=== PATIENT | male | born 1990 | race Caucasian/White ===

== ENCOUNTER 2020-08-10 08:00 | Outpatient (REF) | payer OTHER, SELFPAY ==
[2020-08-10 09:30] LABS: Cholesterol 152 mg/dL; Glucose Fasting 95 mg/dL (60-99); HDL Cholesterol 34 mg/dL; LDL Cholesterol Calculated 102 mg/dl; Triglycerides 84 mg/dL
[2020-08-10 10:03] LABS: Estimated Average Glucose 103 mg/dL; Hemoglobin A1c % 5.2 %
== END 2020-08-10 08:01 | disposition home or self-care (01) ==
LOC: HO.LAB 08:00
PROVIDERS: PCP Family Medicine; Visit Provider Family Medicine
DX: E66.9 Obesity, unspecified (principal); Z82.49 Family history of ischemic heart disease and other diseases of the circulatory system
CPT/HCPCS: 36415; 80061; 82947; 83036

== ENCOUNTER 2020-09-18 08:34 | Emergency (ER) | payer OTHER, SELFPAY ==
--- NOTE | ~2020-09-18 | XR_ITS ---
EXAMINATION: XR chest 1V CLINICAL INFORMATION: Reason for Exam cough, fever COMPARISON: None TECHNIQUE: XR chest 1V Tubes and lines: None Lungs and Ree: Newly developed left parahilar interstitial opacification and interstitial infiltrates. Pleura: Normal. Costophrenic angles are sharp. No pneumothorax. Heart and mediastinum: The mediastinum is within normal limits.. Bones: Skeletal structures included are normal for patient's age. XR/XR chest 1V IMPRESSION: Newly developed left parahilar interstitial infiltrates presumably pneumonia. Clinical correlation and follow-up recommended to ensure complete clearance..
[2020-09-18 08:57] VITALS: BP 146/85; PULSE 90; RESP 18; TEMP 37.6; O2SAT 97; BMI 39.3
--- NOTE | 2020-09-18 09:12 | ED_ITS ---
HPI - General Adult General Chief complaint: General Medical Stated complaint: BACK PAIN Time Seen by Provider: 09/18/20 09:01 Source: patient Mode of arrival: ambulatory Limitations: no limitations History of Present Illness HPI narrative: 29 yo male with past medical history of low back pain, asthma, depression here with complaints of subjective fevers, chills, cough, low back pain, nausea, vomiting, diarrhea, abdominal cramping x 3 days. Works at [employer]. No chest pain, shortness of breath, upper back pain, lower leg swelling or edema. Related Data Previous Rx's Medication Instructions Recorded azithromycin See Rx Instructions .ROUTE 09/18/20 .COMPLEX #6 tab ibuprofen 800 mg PO Q8H #30 tab 09/18/20 Allergies Allergy/AdvReac Type Severity Reaction Status Date / Time No Known Allergies Allergy Unverified 03/03/20 16:13 [No Known Allergies*] Review of Systems Review of Systems: Yes all other systems are reviewed and are negative Constitutional: Constitutional: Reports no additional constitutional complaints, Denies body ache(s), Reports chills, Reports fever(s) (subjective ), Denies headache(s) and Denies weakness Eyes: Eyes: Reports no additional eye complaints and Denies change in vision ENT: Reports system reviewed and no additional complaints, except as documented, Denies dizziness, Denies headache(s), Denies nasal congestion, Denies nasal discharge and Denies neck pain Cardiovascular: Cardiovascular: Reports no additional cardiovascular complaints, Denies chest pain, Denies leg edema and Denies dyspnea Respiratory: Respiratory: Reports no additional respiratory complaints, Reports cough and Denies dyspnea Gastrointestinal: Gastrointestinal: Reports no additional gastrointestinal complaints, Reports abdominal pain, Reports diarrhea, Reports nausea and Reports vomiting Genitourinary: Genitourinary: Denies urinary incontinence Musculoskeletal: Musculoskeletal: Reports no additional musculoskeletal complaints, Denies back pain, Denies arthralgias, Denies joint swelling, Denies neck pain, Denies numbness and Denies tingling Integumentary/Breasts: Skin/Breast: Reports system reviewed and no additional complaints, except as docu and Denies rash Neurologic: Reports system reviewed and no additional complaints, except as documented, Denies Abnormal speech present, Denies dizziness, Denies headache(s), Denies numbness, Denies tingling and Denies weakness PMFSH Past Medical History Attestation statement: The following information was validated with the patient. Source: old records reviewed and nursing notes reviewed Medical History Asthma Depression Social History Social History Advance Directives: Yes Advance Directives Information Provided: No Advance Directives on File: No Physical Exam Vital Signs: Vital Signs: Last Vital Signs Temp 99.6 F 09/18/20 08:57 Pulse 90 09/18/20 08:57 Resp 18 09/18/20 08:57 BP 146/85 H 09/18/20 08:57 Pulse Ox 97 09/18/20 08:57 Body Mass Index 39.3 Const: General: cooperative, healthy appearing, comfortable and no acute distress Orientation/consciousness: patient oriented x3 Limitations: no limitations HENMT: Head: Yes normal to inspection Ears: hearing grossly normal bilaterally General nose exam: Normal external nose present Face and sinus: Yes normal facial exam Mouth: Normal oral and palatal mucosa present Throat: Yes posterior oropharynx normal Eyes: General: appearance normal, both eyes and all related structures Pupils: Equal, round and reactive pupils present Neck: Neck: Yes normal visual inspection Chest: Chest palpation & inspection: normal inspection of the chest Resp: Effort & Inspection: normal respiratory effort Auscultation: clear to auscultation bilaterally Cardio: Rate: regular rate Rhythm: regular rhythm Peripheral pulses: Peripheral pulses 2+ throughout GI: Inspection: Yes normal to inspection Palpation (GI): Soft to palpation and nontender Auscultation: normal bowel sounds Back/Spine/Pelvis: Other: lower lumbar soft tissue tenderness. No step offs or deformities Thoracic/Lumbar Spine: thoracic and lumbar spine normal to inspection Skin: General skin exam: no rashes or lesions noted Neuro: General: patient oriented x3, no focal motor deficits and normal sensation to monofilament Cranial nerves: Yes Equal, round and reactive pupils present Cognition (Neuro): normal cognition Speech: No Abnormal speech present Gait exam (Neuro): Normal gait present Motor exam (neuro): 5/5 motor strength present throughout Extrem: General: Yes normal to inspection Course Course Course Narrative: 29 yo male here with flu like symptoms x 3 days. Will check COVID screen, CXR. 1015-COVID positive. X-ray consistent with a left lower lobe pneumonia. Patient is well-appearing, no tachycardia, hypoxia, tachypnea. No systemic signs or symptoms concerning for systemic infection. Patient ambulated around the room with oxygen saturation greater than 95% and no shortness of breath. Will discharge home. We discussed quarantine at home. We discussed monitoring symptoms closely and returning to the emergency department for worsening shortness of breath, chest pain, fever which is not respond to Motrin or Tylenol. Comfortable with discharge home. Medical Decision Making Lab Data Labs: Lab Results 09/18/20 Range/Units 09:46 COVID-19 (ERICKA) Positive A (Negative) COVID-19 Clin Com See Note Imaging Data Chest x-ray: Attestation: I personally reviewed and interpreted this imaging study as follows: Radiologist's impression: IMPRESSION: Newly developed left parahilar interstitial infiltrates presumably pneumonia. Clinical correlation and follow-up recommended to ensure complete clearance.. Discharge Plan Discharge Clinical Impression: COVID-19, Pneumonia Patient Disposition: Home, Self-Care Instructions: Bacterial Pneumonia (ED), COVID-19 (Coronavirus Disease 2019) (ED) Additional Instructions: Increase fluids, rest Take Motrin or Tylenol if able as needed for pain or fever Per the CDC your must quarentine for 10 days and her symptoms must be resolved for 24 hours before leaving her quarantine Your x-ray shows a pneumonia. We are treating with antibiotics for this. Consider buying a pulse oximeter which had come by on [employer] and monitor your oxygen levels at home. Return to the emergency department for oxygen level is less than 90%. Also return for increasing shortness of breath, chest pain, fever which is not respond to Motrin Tylenol home. Prescriptions: New azithromycin 250 mg tablet See Rx Instructions .ROUTE .COMPLEX Qty: 6 RF: 0 ibuprofen 800 mg tablet 800 mg PO Q8H Qty: 30 RF: 0 Referrals: Gerald Garcia MD [Primary Care Provider] - 2 days Stand Alone Forms: Work/School Release Interventions: ED Discharge Assessment Last Done: 09/18/20 10:22 Discharge Date/Time: 09/18/20 10:22
[2020-09-18 10:00] LABS: IDNOW Serial# 9DD0AD1C
[2020-09-18 10:01] LABS: COVID-19 Test Positive (Negative)
--- NOTE | 2020-09-18 10:16 | PC.NURSE ---
walking pulse oximetry, patient walked 100 feet, o2 saturation went to 95% on room air.
== END 2020-09-18 10:22 | disposition home or self-care (01) ==
PROVIDERS: Nurse Practitioner Family; Emergency Provider Emergency Medicine; PCP Family Medicine
DX: U07.1 COVID-19 (principal); J12.82 Pneumonia due to coronavirus disease 2019; M54.5 Low back pain; Z79.899 Other long term (current) drug therapy
CPT/HCPCS: 36415; 71045; 87635; 99283

== ENCOUNTER 2020-09-23 03:50 | Inpatient (IN) | payer OTHER, SELFPAY ==
[2020-09-23] VITALS (9 sets, daily range): BP systolic 112–129; BP diastolic 59–85; PULSE 76–97; RESP 18–23; TEMP 36.2–38.2; O2SAT 88–96; BMI 39.3
--- NOTE | ~2020-09-23 | XR_ITS ---
EXAMINATION: XR CHEST CLINICAL INFORMATION: Shortness of breath COMPARISON: 09/18/2020 TECHNIQUE: Frontal view of the chest was obtained. FINDINGS: Multifocal bilateral patchy airspace opacities have progressed in the interim. No large pleural effusion. No pneumothorax. Normal heart size. XR/XR chest 1V IMPRESSION: Worsening multifocal bilateral airspace opacities.
[2020-09-23] MEDS: Acetaminophen 325 MG TABLET 975 MG PO (04:51)
--- NOTE | 2020-09-23 04:52 | ED_ITS ---
HPI - URI/Sore Throat General Chief Complaint: Upper Respiratory Symptoms Stated Complaint: COVID + SOB Time Seen by Provider: 09/23/20 04:38 Source: patient Mode of arrival: ambulatory History of Present Illness HPI Narrative: This is a 29-year-old male who presents with shortness of breath, chills, inability to keep food down but states he is able to drink water and keep that down without difficulty. He was diagnosed with COVID-19 on Saturday. Otherwise, he denies any dizziness, chest pain/palpitations, or urinary symptoms. Patient is an asthmatic and states he has been using his inhaler every 4 hours but is ?just not helping?. Related Data Previous Rx's Medication Instructions Recorded azithromycin See Rx Instructions .ROUTE 09/18/20 .COMPLEX #6 tab ibuprofen 800 mg PO Q8H #30 tab 09/18/20 Allergies Allergy/AdvReac Type Severity Reaction Status Date / Time No Known Allergies Allergy Unverified 03/03/20 16:13 [No Known Allergies*] Review of Systems Review of Systems: Pertinent positives and negatives as stated in HPI 10 point review of systems is otherwise negative. PMFSH Past Medical History Source: nursing notes reviewed Medical History Asthma Depression Social History Social History Advance Directives: No Physical Exam Vital Signs: Vital Signs: Last Vital Signs Temp 98.8 F 09/23/20 06:02 Pulse 81 09/23/20 06:02 Resp 22 H 09/23/20 06:02 BP 112/59 L 09/23/20 06:02 Pulse Ox 93 09/23/20 06:02 Body Mass Index 39.3 VITAL SIGNS: Reviewed. GENERAL: Well developed, well nourished, in no acute distress. HEAD: Normocephalic/atraumatic EYES: PERRLA, EOMI OROPHARYNX: no oral lesions noted, posterior pharynx clear, tacky mucosa NECK: Supple, no adenopathy LUNGS: Normal breath sounds. No adventitious sounds or accessory muscle use. SpO2<94> CARDIOVASCULAR: Regular rate and rhythm without noted murmurs ABDOMEN: Soft, non-tender, non-distended with bowel sounds. NEUROLOGIC: Alert and oriented x 4. Course Course Course Narrative: This is a 29-year-old male with history and clinical presentation consistent with COVID-19 syndrome. Patient is not hypoxic but is noted to be mildly tachypneic. Will obtain basic labs and chest x-ray for further evaluation, albuterol treatment, Solu-Medrol. SIRS noted is secondary to viral and medication side effects. Review of all investigations consistent with a mixture of worsening COVID-19 symptoms with mild asthma exacerbation. I discussed the case with the inpatient hospitalist team who is agreeable for admission. MDM - URI/Sore Throat Lab Data Result diagrams: 09/23/20 04:56 09/23/20 04:56 Labs: Lab Results 09/23/20 09/23/20 Range/Units 04:56 04:56 WBC 3.2 L (4.8-10.8) X10*3/uL RBC 5.10 (4.60-5.80) X10*6/uL Hgb 14.5 (14.0-18.0) g/dl Hct 44.2 (42-52) % MCV 86.7 (80-98) fL MCH 28.4 (27.0-33.0) pg MCHC 32.8 (31.0-36.0) g/dl RDW 13.2 (11.0-16.0) % Plt Count 103 L (160-400) X10*3/uL MPV 10.2 (9.4-12.4) fL Immature Gran % (Auto) 0.3 (0.0-0.4) % Neut % (Auto) 73.5 H (45-73) % Lymph % (Auto) 21.8 (20-40) % [place] % (Auto) 4.4 (2-11) % Eos % (Auto) 0.0 (0-4) % Baso % (Auto) 0.0 (0-2) % Lymph # (Auto) 0.7 L (1.2-4.9) X10*3/uL [place] # (Auto) 0.1 (0.1-1.2) X10*3/uL Eos # (Auto) 0.0 (0.0-0.4) X10*3/uL Baso # (Auto) 0.0 (0.0-0.2) X10*3/uL Abs Immat Gran (auto) 0.01 (0.00-0.03) X10*3/uL Absolute Neuts (auto) 2.4 (2.0-8.3) X10*3/uL Absolute Nucleated RBC 0.000 (0.0-0.012) X10*3/uL Nucleated RBC % (auto) 0.0 (0.0-0.2) /100WBC Sodium 137 (135-145) mmol/L Potassium 4.0 (3.3-5.1) mmol/L Chloride 100 (96-108) mmol/L Carbon Dioxide 30 H (22-29) mmol/L Anion Gap 11 L (12-20) BUN 10 (9-16) mg/dL Creatinine 1.01 (0.5-1.4) mg/dL Estim Creat Clear Calc 150.0 Estimated GFR > 60 Random Glucose 103 (60-115) mg/dL Calcium 7.9 L (8.4-10.2) mg/dL Total Bilirubin < 0.2 (0.0-1.0) mg/dL AST 78 H (5-37) U/L ALT 51 H (0-40) U/L Alkaline Phosphatase 64 (39-117) U/L Total Protein 6.9 (6.5-8.0) g/dL Albumin 3.8 (3.5-5.0) g/dL Discharge Plan Discharge Clinical Impression: Lab test positive for detection of COVID-19 virus Asthma exacerbation Qualifiers: Asthma severity: mild Asthma persistence: unspecified Qualified Code(s): J45.901 - Unspecified asthma with (acute) exacerbation Patient Disposition: Admitted As Inpatient
[2020-09-23 05:01] LABS: Hematocrit 44.2 % (42-52); Hemoglobin 14.5 g/dl (14.0-18.0); Imm Gran Pct Auto 0.3 % (0.0-0.4); Lymphocytes Percent Auto 21.8 % (20-40); MANUAL DIFF FLAG NO; Mean Corpuscular HGB Conc 32.8 g/dl (31.0-36.0); Mean Corpuscular Hemoglobin 28.4 pg (27.0-33.0); Mean Corpuscular Volume 86.7 fL (80-98); Mean Platelet Volume 10.2 fL (9.4-12.4); Neutrophils Percent Auto 73.5 % (45-73); Platelet Count 103 X10*3/uL (160-400); Red Cell Distribution Width 13.2 % (11.0-16.0); White Blood Count 3.2 X10*3/uL (4.8-10.8)
[2020-09-23 05:02] LABS: Imm Gran Abs Auto 0.01 X10*3/uL (0.00-0.03); Lymphocytes Absolute Auto 0.7 X10*3/uL (1.2-4.9); Monocytes Absolute Auto 0.1 X10*3/uL (0.1-1.2); Monocytes Percent Auto 4.4 % (2-11); Neutrophils Absolute Auto 2.4 X10*3/uL (2.0-8.3)
[2020-09-23 05:32] LABS: Alanine Aminotransferase 51 U/L (0-40); Albumin Level 3.8 g/dL (3.5-5.0); Alkaline Phosphatase 64 U/L (39-117); Anion Gap 11 (12-20); Aspartate Amino Transferase 78 U/L (5-37); Bilirubin Total < 0.2 mg/dL (0.0-1.0); Blood Urea Nitrogen 10 mg/dL (9-16); Calcium 7.9 mg/dL (8.4-10.2); Carbon Dioxide 30 mmol/L (22-29); Chloride 100 mmol/L (96-108); Estimated Glomerular Filt Rate > 60; Glucose Random 103 mg/dL (60-115); Sodium 137 mmol/L (135-145); Total Protein 6.9 g/dL (6.5-8.0)
[2020-09-23] MEDS: Albuterol Sulfate 90 MCG 8 GM INHALER 4 PUFF INHALE (05:59)
[2020-09-23] MEDS: methylPREDNISolone Sod Succ 125 MG/2 ML VIAL IVPUSH (05:59)
[2020-09-23 06:44] LABS: COVID-19 Test Negative (Negative)
--- NOTE | 2020-09-23 10:27 | HP_ITS ---
DATE OF SERVICE: 09/23/2020 CHIEF COMPLAINT: Shortness of breath. HISTORY OF PRESENTING ILLNESS: This is a 29-year-old gentleman with past medical history significant for asthma, depression, and chronic low back pain. The patient was evaluated at [facility] on September 18 with complaints of subjective fevers, chills, cough, and lower back pain. He also had nausea, vomiting, diarrhea, abdominal cramping. He denied any shortness of breath. He was diagnosed to have COVID-19 infection. A chest x-ray at that time showed bilateral interstitial infiltrates. The patient was treated with azithromycin and Motrin and was discharged home; however, patient returned back to [facility] with symptoms of persistent shortness of breath, chills, nausea, inability to take food down with decreased by mouth intake. In the emergency room, a repeat chest x-ray showed multifocal bilateral patchy airspace opacities progressed in the interim. There was no large pleural effusion or pneumothorax noted. Laboratory data showed a WBC of 3.2. Electrolytes were stable except for mildly elevated bicarb of 30, AST 78, ALT 51. The patient's vitals are stable with a normal blood pressure except he is noted to be tachypneic. No tachycardia. He had a low-grade fever of 100.8. The patient was treated in the emergency room with IV steroids and albuterol and due to persistent symptoms of shortness of breath, COVID-19 infection, and asthma, the patient is being admitted for close evaluation and treatment. PAST MEDICAL HISTORY: Significant for 1. Asthma, use inhalers as needed. 2. History of depression. 3. History of chronic back pain. PAST SURGICAL HISTORY: Status post inguinal hernia repair. SOCIAL HISTORY: The patient works at the [employer]. Lives with parents. No history of smoking, alcohol, or illicit drug use. MEDICATIONS: The patient uses 1. Zoloft, unknown dosage. 2. Use albuterol inhaler as needed. FAMILY HISTORY: Father has valvular heart disease. Mother has chronic back pain and disk disease. No history of premature coronary artery disease or diabetes in family. REVIEW OF SYSTEMS: SPRAY APPLICATOR: The patient denies any headache or dizziness. CVS: Denies any chest pain or palpitation. SKIN: Denies any rashes. MUSCULOSKELETAL: His lower back pain is stable at the present time. ALLERGIES: THE PATIENT HAS NO KNOWN DRUG ALLERGIES. PHYSICAL EXAMINATION: GENERAL: The patient is sitting in bed, in no acute distress. VITAL SIGNS: BP 112/59 with a pulse of 81, respiratory rate 22, temp of 98.8, O2 saturation 93 on room air. HEENT: Pupils equal, round, and reactive to light and accommodation. Extraocular muscles intact. Anicteric sclerae. NECK: Supple. LUNGS: Diminished breath sounds bilaterally with no wheeze or rhonchi. ABDOMEN: Obese, soft, nontender. Bowel sounds are audible. EXTREMITIES: Without clubbing, cyanosis, or edema. NEURO: Nonfocal. SKIN: Without any rashes. PSYCH: Appropriate affect. ASSESSMENT AND PLAN: This is a 29-year-old gentleman with known history of depression and asthma, who has been recently diagnosed to have COVID-19 infection, presented to [facility] with persistent symptoms of shortness of breath, cough, chills, and inability to keep food down, therefore being admitted for close monitoring and treatment. 1. COVID-19 infection with underlying history of asthma. The patient will be admitted to isolation unit, will be placed on IV dexamethasone, albuterol inhaler scheduled and as needed. We will place the patient on cough medication. We will encourage by mouth fluids. We will avoid IV fluids. We will add incentive spirometry. O2 support if oxygenation drops below 90. We will obtain Infectious Disease consultation, since the patient has multiple risks of asthma and obesity with COVID, question if he is a candidate for remdesivir. 2. History of depression. The patient will be placed on Zoloft once medication has been reconciled. 3. Deep vein thrombosis prophylaxis. We will place the patient on Lovenox. MD ELIEL Angela/LARRY / [phone]
--- NOTE | 2020-09-23 12:16 | PC.NURSE ---
x1 attempt to call report- awaiting callback
[2020-09-23] MEDS: Albuterol Sulfate 90 MCG 8 GM INHALER 2 PUFF INHALE ×3 (12:49→21:10)
[2020-09-23] MEDS: Enoxaparin Sodium 40 MG/0.4 ML SYRINGE SUBCUT (13:56)
--- NOTE | 2020-09-23 16:43 | P.CNID_ITS ---
History of Present Illness Data of Consult Service Date: 09/23/20 Requesting physician: Karolina Johnson Primary Care Provider: Gerald Garcia MD HPI Reason for consult: COVID He presents with eight days of shortness of breath and cough. He has no fever or chills He doesnt mention change in taste or smell He says he works at [employer] and customers dont always shop with masks on correctly Review of Systems Review of Systems: Yes all other systems are reviewed and are negative PMFSH Past Medical History Medical History Asthma Depression Family History Family history: reviewed and not pertinent Social History Social History Household Members: Family Housing: Apartment Do you presently have visiting nurse or other home services: No Smoking Status: Never smoker Second Hand Smoke Exposure: No Use of substances other than those prescribed or required for medical reasons: No Have you been hit, kicked, punched, or otherwise hurt by someone within the past year? If so, by whom?: No Do you feel safe in your current relationship?: No Is there a partner from a previous relationship who is making you feel unsafe now?: No Are you made to feel afraid or neglected: No Advance Directives: No Do you have thoughts of harming others: None Do you have a plan to hurt others: No Plan Recently lost weight without trying: Unsure Meds Allergies Allergy/AdvReac Type Severity Reaction Status Date / Time No Known Allergies Allergy Unverified 03/03/20 16:13 [No Known Allergies*] Active Medications: Current Medications Generic Name Dose Route Start Last Admin Trade Name Freq PRN Reason Stop Dose Admin Acetaminophen 650 mg 09/23/20 12:12 Acetaminophen 325 Mg Tablet PO Q6H PRN PAIN Albuterol Sulfate 2 puff 09/23/20 12:12 09/23/20 16:41 Albuterol Sulfate 90 Mcg 8 Gm Inhaler INHALE 2 puff RQID BELINDA Administration Albuterol Sulfate 2 puff 09/23/20 12:12 Albuterol Sulfate 90 Mcg 8 Gm Inhaler INHALE Q3H PRN shortness of breath Dexamethasone Sodium Phosphate 6 mg 09/24/20 06:00 Dexamethasone Sod Phosphate 4 Mg/Ml Vial IVPUSH 09/24/20 06:01 ONCE ONE Enoxaparin Sodium 40 mg 09/23/20 12:12 09/23/20 13:56 Enoxaparin Sodium 40 Mg/0.4 Ml Syringe SUBCUT 40 mg Q24H BELINDA Administration Ondansetron HCl 4 mg 09/23/20 12:12 Ondansetron Hcl 4 Mg/2 Ml Vial IVPUSH Q8H PRN Nausea Pharmacy Consult 1 each 09/23/20 12:12 Consult Rx Perform Med Rec MISCELLANE ONCE PRN Consult order Home Medications Medication Instructions Recorded Confirmed Last Taken Type fluticasone propionate [Flovent] 2 puff INHALATION BID 09/23/20 09/23/20 1 Day Ago History ~09/22/20 sertraline 100 mg PO DAILY 09/23/20 09/23/20 Unknown History Physical Exam Vital Signs: Vital Signs: Last Vital Signs Temp 97.1 F 09/23/20 16:00 Pulse 79 09/23/20 16:00 Resp 19 09/23/20 16:00 BP 128/77 09/23/20 16:00 Pulse Ox 90 L 09/23/20 16:00 Body Mass Index 39.3 Const: General: cooperative HENMT: Mouth: Normal oral and palatal mucosa present Resp: Effort & Inspection: able to speak in complete sentences Cardio: Rate: regular rate Rhythm: regular rhythm GI: Palpation (GI): nontender : General: Yes no CVA tenderness Back/Spine/Pelvis: Back: no CVA tenderness Skin: General skin exam: no rashes or lesions noted Results Labs CBC & Chem 7: 09/23/20 04:56 09/23/20 04:56 Labs: Short CBC 09/23/20 Range/Units 04:56 WBC 3.2 L (4.8-10.8) X10*3/uL Hgb 14.5 (14.0-18.0) g/dl Hct 44.2 (42-52) % Plt Count 103 L (160-400) X10*3/uL BMP 09/23/20 04:56 Sodium 137 Potassium 4.0 Chloride 100 Carbon Dioxide 30 H BUN 10 Creatinine 1.01 Calcium 7.9 L Liver Function 09/23/20 Range/Units 04:56 Total Bilirubin < 0.2 (0.0-1.0) mg/dL AST 78 H (5-37) U/L ALT 51 H (0-40) U/L Alkaline Phosphatase 64 (39-117) U/L Albumin 3.8 (3.5-5.0) g/dL Assessment and Plan (1) COVID-19: Problem details: He has no hypoxia at this time He has COVID and risk factors high BMI and asthma Status: Acute Continue Dexamethasone No Remdesivir unless needing oxygen
--- NOTE | 2020-09-23 16:44 | PC.RT ---
Pt moved from ED to [facility]. came in for his scheduled Albuterol inhaler. He said he is feeling some discomfort in his chest. SpO2 was 87-88 .Placed on 2L NC and spoke with nurse. Pt said he felt a little better with oxygen
[2020-09-24] VITALS (10 sets, daily range): BP systolic 114–137; BP diastolic 60–73; PULSE 71–85; RESP 18–20; TEMP 36.7–37.3; O2SAT 90–94
[2020-09-24] MEDS: dexAMETHasone sod phosphate 4 MG/ML VIAL 6 MG IVPUSH (05:23)
[2020-09-24] MEDS: Albuterol Sulfate 90 MCG 8 GM INHALER 2 PUFF INHALE ×4 (07:52→20:37)
--- NOTE | 2020-09-24 10:45 | MHC.CM.PN ---
CM SPOKE WITH PT VIA T/C ([phone]). PT REPORTS HE LIVES WITH HIS PARENTS AND IS FULLY INDEPENDENT AND WORKS. PT REPORTS HIS PARENTS HAVE NOT YET BEEN TESTED FOR COVID. PT IS AWARE HE MAY NEED TO QUARANTINE DEPENDING ON HOW SOON HE IS DISCHARGED AND THE RESULTS OF HIS PARENTS COVID TESTS. PT ALSO MAY NEED TRANSPORTATION ARRANGED. PT REPORTS HE WILL LIKELY BE ABLE TO QUARANTINE SAFELY IN THE HOME HE SHARES WITH HIS PARENTS. OTHERWISE, HE IS AWARE THERE MAY BE OPTIONS VIA THE COVID-19 [facility] HOTLINE ([phone]). PT DOES NOT HAVE A HCP, HE IS INTERESTED IN MORE INFORMATION REGARDING THE USES AND BENEFITS. INFORMATION AND DOCUMENT PROVIDED.
--- NOTE | 2020-09-24 13:01 | P.PNIM_ITS ---
Subjective Subjective Date of Service: 09/25/20 Interval History: Patient feeling better this morning feeling less short of breath, has less generalized weakness, no further episodes of fever respiratory rate is stable although noted to have hypoxemia overnight currently on 2 L of oxygen with finger oximetry 92% General no headache no dizziness no fever chills. CVS no chest pain, no palpitation. Respiratory no cough , less shortness of breath. Gastrointestinal no nausea, no vomiting, no abdominal pain Physical Exam Vital Signs: Vital Signs: Last Vital Signs Temp 99.1 F 09/24/20 12:00 Pulse 84 09/24/20 12:28 Resp 20 09/24/20 12:00 BP 118/65 09/24/20 12:00 Pulse Ox 93 09/24/20 12:00 Body Mass Index 39.3 General no acute distress, talking in full sentences. Neck supple no JVD. CVS regular rate rhythm, Respiratory diminished breath sound bilaterally, no respiratory distress, no wheeze, no rhonchi. Gastrointestinal abdomen obese, soft, nontender, bowel sounds audible, no guarding , no rigidity. Extremities no clubbing cyanosis or edema. Neuro nonfocal Skin no rash Psych appropriate affect Objective Data Current Medications Generic Name Dose Route Start Last Admin Trade Name Freq PRN Reason Stop Dose Admin Acetaminophen 650 mg 09/23/20 12:12 Acetaminophen 325 Mg Tablet PO Q6H PRN PAIN Albuterol Sulfate 2 puff 09/23/20 12:12 09/24/20 12:27 Albuterol Sulfate 90 Mcg 8 Gm Inhaler INHALE 2 puff RQID BELINDA Administration Albuterol Sulfate 2 puff 09/23/20 12:12 Albuterol Sulfate 90 Mcg 8 Gm Inhaler INHALE Q3H PRN shortness of breath Enoxaparin Sodium 40 mg 09/23/20 12:12 09/23/20 13:56 Enoxaparin Sodium 40 Mg/0.4 Ml Syringe SUBCUT 40 mg Q24H BELINDA Administration Ondansetron HCl 4 mg 09/23/20 12:12 Ondansetron Hcl 4 Mg/2 Ml Vial IVPUSH Q8H PRN Nausea Pharmacy Consult 1 each 09/23/20 12:12 Consult Rx Perform Med Rec MISCELLANE ONCE PRN Consult order Labs CBC & Chem 7: 09/23/20 04:56 09/23/20 04:56 Assessment and Plan (1) Hypoxia: Status: Acute (2) COVID-19: Problem details: He has hypoxia at this time He has COVID and risk factors high BMI and asthma Status: Acute (3) Lab test positive for detection of COVID-19 virus: Status: Acute (4) Asthma exacerbation: Status: Acute Assessment and Plan: 29-year-old gentleman with known history of depression and asthma, who has been recently diagnosed to have COVID-19 infection, presented to [facility] with persistent symptoms of shortness of breath, cough, chills, and inability to keep food down, therefore being admitted for close monitoring and treatment. 1. COVID-19 infection with underlying history of asthma/acute hypoxic respiratory failure O2 sat 87-88% on room air at rest. Overall patient feeling better with less shortness of breath and weakness but noted to have hypoxemia overnight currently on 2 L of oxygen finger oximetry 92% Will continue IV dexamethasone day 2, continue supportive care with cough medication, oxygen, encourage incentive spirometry and frequent position change. Patient evaluated by Dr. River she will review need for remdesivir. Mildly elevated LFTs, hypocalcemia all related to COVID. Spoke with patient's mom and updated her about patient's current medical condition explained reason for continued admission. 2. History of depression. Resume home dose of Zoloft , no acute depressive symptoms 3. Asthma no acute exacerbation continue prn inhalers 4. Deep vein thrombosis prophylaxis. on Lovenox.
[2020-09-24] MEDS: Enoxaparin Sodium 40 MG/0.4 ML SYRINGE SUBCUT (16:31)
[2020-09-24] MEDS: Sertraline HCL 100 MG TABLET PO (16:31)
[2020-09-24] MEDS: Remdesivir 200 MG in 0.9 % Sodium Chloride 210 ML 105 MG IV (17:41)
--- NOTE | 2020-09-24 22:20 | PM.IDPN ---
Subjective Subjective Date of Service: 09/24/20 Interval History: he has worsening oxygenation oxygen saturation room air 87-88% he wants to leave Objective Data Labs CBC & Chem 7: 09/23/20 04:56 09/23/20 04:56 Physical Exam Vital Signs: Vital Signs: Last Vital Signs Temp 98.2 F 09/24/20 19:09 Pulse 84 09/24/20 20:38 Resp 18 09/24/20 19:09 BP 128/70 09/24/20 19:09 Pulse Ox 90 L 09/24/20 19:09 Body Mass Index 39.3 Const: General: cooperative HENMT: Head: Yes normal to inspection Mouth: Normal oral and palatal mucosa present Resp: Effort & Inspection: able to speak in complete sentences and tachypneic Cardio: Rate: regular rate Rhythm: regular rhythm GI: Palpation (GI): nontender Assessment and Plan Assessment and plan (1) COVID-19: Problem details: He has hypoxia at this time He has COVID and risk factors high BMI and asthma Status: Acute Assessment and Plan: Continue oxygen Continue Dexamethasone Remdesivir until not hypoxic and then po Dexamethasone to finish 10 d treatmen (2) Hypoxia: Status: Resolved Time Spent With Patient Time: Total time spent is greater than 50% in coordination of care (as documented) at patient's floor/unit and/or counseling patient: Time with patient: 15 - 24 minutes
[2020-09-25] VITALS: BP 113/61; PULSE 68; RESP 20; TEMP 36.6; O2SAT 95
[2020-09-25 05:06] VITALS: BP 116/69; PULSE 63; RESP 20; TEMP 36.3; O2SAT 94
[2020-09-25] MEDS: Albuterol Sulfate 90 MCG 8 GM INHALER 2 PUFF INHALE ×3 (07:50→15:10)
[2020-09-25 07:51] VITALS: PULSE 80; O2SAT 94
[2020-09-25 08:00] VITALS: BP 112/62; PULSE 79; RESP 20; TEMP 36.9; O2SAT 95
[2020-09-25] MEDS: dexAMETHasone sod phosphate 4 MG/ML VIAL 6 MG IVPUSH (09:15)
[2020-09-25] MEDS: Sertraline HCL 100 MG TABLET PO (09:15)
[2020-09-25 12:00] VITALS: BP 122/70; PULSE 86; RESP 20; TEMP 36.7; O2SAT 95
[2020-09-25] MEDS: Enoxaparin Sodium 40 MG/0.4 ML SYRINGE SUBCUT (13:29)
--- NOTE | 2020-09-25 14:22 | PM.DS ---
DS: Providers Provider Date of Service: 09/25/20 Date of admission: 09/23/20 11:00 Primary care physician: Gerald Garcia MD Consults: 09/23/20 12:12 Consult to Infectious Diseases Routine Consulting Provider: Niharika River Reason for consultation: covid 19 Has provider been notified: No DS: Diagnosis Discharge Diagnosis (1) Hypoxia: Status: Acute (2) COVID-19: Status: Acute Problem details: He has hypoxia at this time He has COVID and risk factors high BMI and asthma (3) Lab test positive for detection of COVID-19 virus: Status: Acute (4) Asthma exacerbation: Status: Acute DS: Medications Discharge Medications Home Medications: Home Medications Medication Instructions Recorded Confirmed fluticasone propionate 2 puff INHALATION BID 09/23/20 09/23/20 sertraline 100 mg PO DAILY 09/23/20 09/23/20 Previous Rx's Medication Instructions Recorded dexamethasone 6 mg PO DAILY #7 tab 09/25/20 DS: Summary Hospital Course Hospital Course: History of presenting illness CHIEF COMPLAINT: Shortness of breath. HISTORY OF PRESENTING ILLNESS: This is a 29-year-old gentleman with past medical history significant for asthma, depression, and chronic low back pain. The patient was evaluated at [facility] on September 18 with complaints of subjective fevers, chills, cough, and lower back pain. He also had nausea, vomiting, diarrhea, abdominal cramping. He denied any shortness of breath. He was diagnosed to have COVID-19 infection. A chest x-ray at that time showed bilateral interstitial infiltrates. The patient was treated with azithromycin and Motrin and was discharged home; however, patient returned back to [facility] with symptoms of persistent shortness of breath, chills, nausea, inability to take food down with decreased by mouth intake. In the emergency room, a repeat chest x-ray showed multifocal bilateral patchy airspace opacities progressed in the interim. There was no large pleural effusion or pneumothorax noted. Laboratory data showed a WBC of 3.2. Electrolytes were stable except for mildly elevated bicarb of 30, AST 78, ALT 51. The patient's vitals are stable with a normal blood pressure except he is noted to be tachypneic. No tachycardia. He had a low-grade fever of 100.8. The patient was treated in the emergency room with IV steroids and albuterol and due to persistent symptoms of shortness of breath, COVID-19 infection, and asthma, the patient is being admitted for close evaluation and treatment. PAST MEDICAL HISTORY: Significant for 1. Asthma, use inhalers as needed. 2. History of depression. 3. History of chronic back pain. PAST SURGICAL HISTORY: Status post inguinal hernia repair 29-year-old gentleman with known history of depression and asthma, who has been recently diagnosed to have COVID-19 infection, presented to [facility] with persistent symptoms of shortness of breath, cough, chills, and inability to keep food down, therefore being admitted for close monitoring and treatment. 1. Patient diagnosed to have COVID-19 infection on 09/18/20 and was treated with azithromycin however patient returned to [facility] with symptoms of weakness shortness of breath cough chills Nausea and vomiting therefore was admitted for close monitoring subsequently was noted to have acute hypoxic respiratory failure O2 sat 87-88% on room air at rest, therefore treated with IV dexamethasone and placed on IV remdesivir, this morning patient is feeling better, using incentive spirometry, and ambulating ,finger oximetry stable at 95% on room air will discharge patient home on 7 more days of dexamethasone to finish a total 10 day course of therapy, he is recommended to continue isolation total 10 days. Use cough medication as needed and continue incentive spirometry and frequent position change 2. History of depression. Continue home dose of Zoloft , no acute depressive symptoms noted. 3. Asthma no acute exacerbation continue prn inhalers Time Spent with Patient Time attestation: Total time spent providing and/or coordinating discharge services: Discharge coordination time: Greater than 30 minutes Physical Exam Vital Signs: Vital Signs: Last Vital Signs Temp 98.0 F 09/25/20 12:00 Pulse 86 09/25/20 12:00 Resp 20 09/25/20 12:00 BP 122/70 09/25/20 12:00 Pulse Ox 95 09/25/20 12:00 Body Mass Index 39.3 General no acute distress, talking in full sentences. Neck supple no JVD. CVS regular rate rhythm, Respiratory diminished breath sound bilaterally, no respiratory distress, no wheeze, no rhonchi. Gastrointestinal abdomen obese, soft, nontender, bowel sounds audible, no guarding , no rigidity. Extremities no clubbing cyanosis or edema. Neuro nonfocal Skin no rash Psych appropriate affect Discharge Plan Discharge Patient Disposition: Home, Self-Care Referrals: Gerald Garcia MD [Primary Care Provider] - Discharge Medications: New dexamethasone 6 mg tablet 6 mg PO DAILY Qty: 7 RF: 0 Continued sertraline 100 mg tablet 100 mg PO DAILY RF: 0 fluticasone propionate 110 mcg/actuation Hfa Aerosol Inhaler 2 puff INHALATION BID RF: 0 Discontinued azithromycin 250 mg tablet See Rx Instructions .ROUTE .COMPLEX Qty: 6 RF: 0 ibuprofen 800 mg tablet 800 mg PO Q8H Qty: 30 RF: 0 Discharge Orders: Discharge Order (Routine); Ordered 09/25/20 Ordered By: Janey Amaya Diet: advance to usual diet Activity on Discharge: As tolerated Stand Alone Forms: Patient Portal Discharge page Care Plan Goals: As above Health Concerns: COVID-19 infection with hypoxia, your oxygenation has improved, rest drink plenty of fluid take dexamethasone as prescribed for 7 more days, do activity as tolerated return to check with any worsening symptoms of shortness of breath lightheadedness or dizziness, continue isolation through September 28 Plan of Treatment: Outpatient follow-up with PCP Assessment: As per discharge summary
[2020-09-25 15:32] VITALS: BP 112/54; PULSE 73; RESP 20; O2SAT 91
== END 2020-09-25 16:21 | disposition home or self-care (01) | DRG 137 ==
LOC: HO.ED 06:15 → HO.EDOVER 11:05 → HO.IMC 11:09
PROVIDERS: Admitting Provider Hospitalist; Emergency Provider Student in an Organized Health Care Education/Training Program; PCP Family Medicine; Visit Provider Hospitalist
DX: U07.1 COVID-19 (principal); J45.901 Unspecified asthma with (acute) exacerbation; G89.29 Other chronic pain; M54.5 Low back pain; R09.02 Hypoxemia; Z79.52 Long term (current) use of systemic steroids; Z79.899 Other long term (current) drug therapy
CPT/HCPCS: 36415; 71045; 80053; 85025; 87635; 96374; 99285; J1100; J1650; J2930; J3490

== ENCOUNTER 2021-01-31 12:43 | Outpatient (REF) | payer OTHER, SELFPAY ==
[2021-01-31 13:59] LABS: MANUAL DIFF FLAG NO
[2021-01-31 14:05] LABS: Basophils Absolute Auto 0.1 X10*3/uL (0.0-0.2); Basophils Percent Auto 0.5 % (0-2); Eosinophils Absolute Auto 0.1 X10*3/uL (0.0-0.4); Eosinophils Percent Auto 1.2 % (0-4); Hematocrit 45.4 % (42-52); Hemoglobin 14.7 g/dl (14.0-18.0); Imm Gran Abs Auto 0.03 X10*3/uL (0.00-0.03); Imm Gran Pct Auto 0.3 % (0.0-0.4); Lymphocytes Absolute Auto 2.8 X10*3/uL (1.2-4.9); Lymphocytes Percent Auto 29.4 % (20-40); Mean Corpuscular HGB Conc 32.4 g/dl (31.0-36.0); Mean Corpuscular Hemoglobin 28.4 pg (27.0-33.0); Mean Corpuscular Volume 87.8 fL (80-98); Mean Platelet Volume 11.7 fL (9.4-12.4); Monocytes Absolute Auto 0.6 X10*3/uL (0.1-1.2); Monocytes Percent Auto 6.3 % (2-11); Neutrophils Percent Auto 62.3 % (45-73); Platelet Count 265 X10*3/uL (160-400); Red Blood Count 5.17 X10*6/uL (4.60-5.80); Red Cell Distribution Width 12.8 % (11.0-16.0); White Blood Count 9.7 X10*3/uL (4.8-10.8)
[2021-01-31 14:41] LABS: Alanine Aminotransferase 37 U/L (0-40); Aspartate Amino Transferase 25 U/L (5-37)
== END 2021-01-31 12:44 | disposition home or self-care (01) ==
LOC: HO.HMGCLDS 12:43
PROVIDERS: PCP Family Medicine; Visit Provider Family Medicine
DX: R79.89 Other specified abnormal findings of blood chemistry (principal); D72.819 Decreased white blood cell count, unspecified
CPT/HCPCS: 36415; 84450; 84460; 85025

== ENCOUNTER 2021-09-01 14:04 | Outpatient (REF) | payer OTHER, SELFPAY ==
--- NOTE | ~2021-09-01 | XR_ITS ---
EXAMINATION: XR LUMBOSACRAL SPINE CLINICAL INFORMATION: Low back pain COMPARISON: None TECHNIQUE: Three views of the lumbosacral spine. FINDINGS: The vertebral bodies and posterior elements are normal. The disc spaces are preserved and the vertebral alignment is normal. The paraspinal soft tissues are normal. XR/XR lumbar spine 2-3V IMPRESSION: Unremarkable examination.
== END 2021-09-01 14:05 | disposition home or self-care (01) ==
LOC: HO.XRAY 14:04
PROVIDERS: PCP Family Medicine; Visit Provider Family Medicine
DX: M54.50 Low back pain, unspecified (principal)
CPT/HCPCS: 72100

== ENCOUNTER 2021-09-13 17:41 | Emergency (ER) | payer OTHER, SELFPAY ==
[2021-09-13 18:05] VITALS: BP 123/67; PULSE 81; RESP 17; TEMP 36.6; O2SAT 98; BMI 39.5
--- NOTE | 2021-09-13 18:22 | ED.GENADULT ---
HPI - General Adult General Chief complaint: Back Pain/Injury Stated complaint: left sided abd and back apain Time Seen by Provider: 09/13/21 18:22 Source: patient Mode of arrival: ambulatory Limitations: no limitations History of Present Illness HPI narrative: Patient is a 30 year old male presenting to the emergency department today with left sided back pain. 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 Patient denies any dizziness, lightheadedness, abdominal pain, nausea, vomiting, fever, chills, blurry vision, double vision, loss of vision, chest pain, difficulty breathing, shortness of breath, night sweats, pain with urination, increased urinary frequency, increased urinary urgency, blood in his urine or stool, syncope or a near syncopal episode, recent trauma or falls, bowel incontinence, bladder incontinence, bowel retention, bladder retention, or any other complaints at this time.? Onset (ago): hour(s) Location: back Radiation: non-radiation Severity: mild Severity scale (1-10): 3 Quality: aching Pain Consistency: constant Relieving factors: none Exacerbating factors: none Associated symptoms: denies other symptoms Treatments prior to arrival: none Related Data Home Medications Medication Instructions Recorded Confirmed fluticasone propionate 110 2 puff INHALATION BID 09/23/20 09/23/20 mcg/actuation HFA aerosol inhaler sertraline 100 mg tablet 100 mg PO DAILY 09/23/20 09/23/20 Previous Rx's Medication Instructions Recorded dexamethasone 6 mg tablet 6 mg PO DAILY #7 tab 09/25/20 cyclobenzaprine 10 mg tablet 10 mg PO TID PRN 7 Days #21 tab 09/13/21 Allergies Allergy/AdvReac Type Severity Reaction Status Date / Time No Known Allergies Allergy Unverified 03/03/20 16:13 [No Known Allergies*] Review of Systems Constitutional: Constitutional: Reports no additional constitutional complaints, Denies chills, Denies fever(s) and Denies night sweats Eyes: Eyes: Reports no additional eye complaints, Denies blurry vision, Denies change in vision, Denies diplopia, Denies eye discharge, Denies loss of vision and Denies eye pain ENT: Denies dizziness Cardiovascular: Cardiovascular: Reports no additional cardiovascular complaints, Denies chest pain, Denies lightheadedness, Denies Loss of Consciousness and Denies dyspnea Respiratory: Respiratory: Reports no additional respiratory complaints and Denies dyspnea Gastrointestinal: Gastrointestinal: Reports no additional gastrointestinal complaints, Denies abdominal pain, Denies melena, Denies hematochezia, Denies change in bowel habits and Denies change in stool character Genitourinary: Genitourinary: Reports no additional male genitourinary complaints, Denies hematuria, Denies oliguria, Denies difficulty urinating, Denies dysuria, Denies urinary frequency, Denies urinary hesitancy, Denies urinary incontinence and Denies urinary urgency Musculoskeletal: Musculoskeletal: Reports no additional musculoskeletal complaints, Reports back pain, Denies numbness and Denies tingling Neurologic: Denies dizziness, Denies loss of vision, Denies numbness and Denies tingling Psychiatric: Psychiatric: Reports no additional psychiatric complaints Endocrine: Endocrine: Reports no additional endocrine complaints Hematologic/Lymphatic: Hematologic/Lymphatic: Reports no additional hematologic/lymphatic complaints Allergic/Immunologic: Allergic/Immunologic: Reports no additional allergic/immunologic complaints PMFSH Past Medical History Attestation statement: The following information was validated with the patient. Source: old records reviewed Medical History Asthma Depression Social History Social History Household Members: Family Housing: Apartment Do you presently have visiting nurse or other home services: No Second Hand Smoke Exposure: No Advance Directives: No Advance Directives Information Provided: No service: No Current occupational status: employed Physical Exam ED Vital Signs: Vital Signs - 24 hr 09/13/21 18:05 Temperature 98 F Pulse Rate 81 Respiratory Rate 17 Blood Pressure 123/67 Pulse Oximetry 98 BMI result Body Mass Index 39.5 Const General: cooperative, no acute distress, alert and awake Nutritional Appearance: well nourished Orientation/consciousness: patient oriented x3 Limitations: no limitations HENMT Head: Yes normal to inspection and Yes atraumatic Ears: hearing grossly normal bilaterally and external ears normal General nose exam: Normal external nose present, no nasal discharge noted and no epistaxis Face and sinus: Yes normal facial exam, No abrasion and No laceration Mouth: Normal oral and palatal mucosa present, no drooling and no muffled voice Eyes General: appearance normal, both eyes and all related structures Periorbital: periorbital findings normal Eyelids: Yes eyelids normal Conjunctivae: conjunctivae normal Pupils: Equal, round and reactive pupils present EOM: EOMs intact bilaterally Neck Neck: Yes normal visual inspection, Yes full ROM and Yes no lymphadenopathy Chest Chest palpation & inspection: normal inspection of the chest Resp Effort & Inspection: normal respiratory effort and able to speak in complete sentences Auscultation: clear to auscultation bilaterally Cardio Rate: regular rate Rhythm: regular rhythm GI Inspection: Yes normal to inspection General: Yes no CVA tenderness Back/Spine/Pelvis Back: no CVA tenderness Cervical Spine: normal cervical lordosis and cervical ROM normal Thoracic/Lumbar Spine: thoracic and lumbar spine normal to inspection and thoraco-lumbar ROM normal Pelvis: no pain with anterior-posterior compression Neuro General: patient oriented x3 and moves all extremities Cranial nerves: Yes Equal, round and reactive pupils present Cognition (Neuro): normal cognition Motor exam (neuro): 5/5 motor strength present throughout Sensory Exam: Normal double simultaneous stimulation for sensation Coordination: [id number] test normal Extrem General: Yes normal to inspection, Yes full ROM and Yes capillary refill normal Psych Appearance: grossly normal Mental Status: mental status grossly normal Affect: normal affect Attitude: cooperative Thought process: Normal thought process present Thought content: Normal thought content present Insight: Good insight present (Psych) Medical Decision Making MDM Narrative Medical decision making narrative: Patient is a 30 year old male presenting to the emergency department today with left sided back pain. Patient's physical exam was unremarkable. I explained my physical exam findings to the patient. I answered all questions asked by the patient. Patient received IM Toradol and PO Flexeril which he stated helped his symptoms significantly. I stressed the importance of the patient taking his medication as prescribed. I stressed the importance of the patient following up with his primary care provider. I stressed the importance of the patient returning to the emergency department immediately if his symptoms were to worsen or if he were to develop any dizziness, shortness of breath, difficulty breathing, chest pain, blurry vision, loss of vision, nausea, vomiting, abdominal pain, fever, chills, back pain, or any other complaints. Patient verbalized agreement and understanding with this treatment plan and discharge. Differential Diagnosis Differential Diagnosis: back pain, back strain Medical Records Medical records reviewed: Yes I reviewed the patient's medical records. Discharge Plan Discharge Clinical Impression: Back strain Patient Disposition: Home, Self-Care Instructions: Back Pain (ED) Additional Instructions: Follow up with your primary care provider. Return to the emergency department immediately if your symptoms worsen or if you develop any dizziness, shortness of breath, difficulty breathing, chest pain, blurry vision, loss of vision, nausea, vomiting, abdominal pain, fever, chills, back pain, or any other complaints. Prescriptions: New cyclobenzaprine 10 mg tablet 10 mg PO TID PRN (Reason: muscle spasm) 7 Days Qty: 21 0RF No Action sertraline 100 mg tablet 100 mg PO DAILY 0RF fluticasone propionate 110 mcg/actuation Hfa Aerosol Inhaler 2 puff INHALATION BID 0RF dexamethasone 6 mg tablet 6 mg PO DAILY Qty: 7 0RF Referrals: Gerald Garcia MD [Primary Care Provider] - 2 days Stand Alone Forms: Work/School Release Print Language: Faroese
[2021-09-13] MEDS: Cyclobenzaprine HCl 10 MG TABLET PO (18:58)
[2021-09-13] MEDS: Ketorolac Tromethamine 15 MG/ML VIAL IM (18:58)
== END 2021-09-13 19:05 | disposition home or self-care (01) ==
PROVIDERS: Emergency Provider Emergency Medicine; PCP Family Medicine
DX: S39.012A Strain of muscle, fascia and tendon of lower back, initial encounter (principal); X50.0XXA Overexertion from strenuous movement or load, initial encounter; G89.29 Other chronic pain; M54.9 Dorsalgia, unspecified; Y93.89 Activity, other specified; Y92.9 Unspecified place or not applicable; Y99.0 Civilian activity done for income or pay
CPT/HCPCS: 96372; 99283; 99284; J1885

== ENCOUNTER 2021-11-06 11:12 | Outpatient (REF) | payer OTHER, SELFPAY ==
[2021-11-06 11:59] LABS: COVID-19 Test Negative (Negative); IDNOW Serial# 16C4AD1C
== END 2021-11-06 11:13 | disposition home or self-care (01) ==
LOC: HO.LAB 11:12
PROVIDERS: Visit Provider Internal Medicine
DX: Z20.822 Contact with and (suspected) exposure to COVID-19 (principal)
CPT/HCPCS: 87635; C9803

== ENCOUNTER 2024-03-07 10:41 | Emergency (ER) | payer OTHER, SELFPAY ==
--- NOTE | 2024-03-07 | ECG_ITS ---
Test Reason : CHEST HEAVINESS Blood Pressure : / mmHG Vent. Rate : 068 BPM Atrial Rate : 068 BPM P-R Int : 134 ms QRS Dur : 096 ms QT Int : 396 ms P-R-T Axes : 048 -05 019 degrees QTc Int : 421 ms Normal sinus rhythm Minimal voltage criteria for LVH, may be normal variant ( R in aVL ) Borderline ECG No previous ECGs available Referred By: Generic ED Physician Electronically Signed By:BRYN JENKINS
--- NOTE | ~2024-03-07 | XR_ITS ---
EXAMINATION: XR CHEST 2 VIEWS CLINICAL INFORMATION: chest pressure COMPARISON: 2020 TECHNIQUE: XR CHEST 2 VIEWS, 2 Views Lungs and Ree: Both lungs are clear. Pleura: Normal. Costophrenic angles are sharp. No pneumothorax. Heart: The heart is normal in size. Mediastinum: The mediastinum is within normal limits.. Bones: Skeletal structures included are normal for patient's age. XR/XR chest 2V IMPRESSION: No radiographic evidence of acute cardiopulmonary disease. Electronically signed by: Kandace Zelaya MD 03/07/2024 01:07 PM EDT
[2024-03-07 10:56] VITALS: BP 122/84; PULSE 65; RESP 16; TEMP 36.3; O2SAT 98; BMI 39.6
--- NOTE | 2024-03-07 10:56 | ED_ITS ---
HPI - General Adult General Chief complaint: General Medical Stated complaint: heavy feeling in chest, sore throat, dizzy Time Seen by Provider: 03/07/24 11:24 Source: patient and RN notes reviewed Mode of arrival: ambulatory Limitations: no limitations History of Present Illness ED Provider: Andria Lassiter PA-C HPI narrative: This is a 33-year-old male, with a history of asthma, who presents emergency department with complaints of sore throat, dry cough for the last week. Patient states that his symptoms have not been improving. He has been taking Tylenol for his symptoms which provided him with some relief. Last dose was yesterday. Denies any fevers, chills, difficulty swallowing, ear pain, abdominal pain, nausea, vomiting or diarrhea. He does report some chest discomfort, that he states occurs most of the time, he does report pain worsens with coughing as well as with movement. He denies any cardiac history. No family medical problems. He denies any recent travel, surgeries, hospitalizations. He is not on hormone replacement, and has no history of blood clots. No sick contacts. No other complaints or concerns at this time. MD complaint: Cough, sore throat Onset (ago): day(s) Quality: aching Pain Consistency: constant Relieving factors: none Exacerbating factors: none Associated symptoms: chest pain and cough Treatments prior to arrival: none Related Data Home Medications ?Medication ?Instructions ?Recorded ?Confirmed fluticasone propionate 110 2 puff inhalation BID 09/23/20 09/23/20 mcg/actuation HFA aerosol inhaler sertraline 100 mg tablet 100 mg PO DAILY 09/23/20 09/23/20 Previous Rx's ?Medication ?Instructions ?Recorded dexamethasone 6 mg tablet 6 mg PO DAILY #7 tabs 09/25/20 cyclobenzaprine 10 mg tablet 10 mg PO TID PRN muscle spasm 7 09/13/21 days #21 tabs acetaminophen 500 mg tablet 1,000 mg (2 x 500 mg) PO Q8H PRN 03/07/24 (Tylenol Extra Strength) pain #30 tabs ibuprofen 600 mg tablet 600 mg PO Q6H PRN pain #30 tabs 03/07/24 phenol 1.4 % mucosal aerosol spray 5 spray mucous membrane Q5H PRN 03/07/24 sore throat #20 mL Allergies Allergy/AdvReac Type Severity Reaction Status Date / Time No Known Allergies Allergy Verified 03/07/24 10:58 [No Known Allergies*] Review of Systems Review of Systems: Yes all other systems are reviewed and are negative Constitutional: Constitutional: Reports as per [facility] Past Medical History Medical History Asthma Depression Social History Social History Household Members: Family Housing: Apartment Do you presently have visiting nurse or other home services: No Second Hand Smoke Exposure: No Advance Directives: No Advance Directives Information Provided: No Do you have a plan to hurt others: No Plan service: No Current occupational status: employed Physical Exam ED Vital Signs: Vital Signs - 24 hr 03/07/24 10:56 Temperature 97.3 F Pulse Rate 65 Respiratory Rate 16 Blood Pressure 122/84 Pulse Oximetry 98 Oxygen Delivery Method Room Air BMI result Body Mass Index 39.6 Const General: cooperative, comfortable and no acute distress Orientation/consciousness: patient oriented x3 Limitations: no limitations HENMT Head: Yes normal to inspection, Yes normocephalic and Yes atraumatic Ears: hearing grossly normal bilaterally and TM's normal bilaterally General nose exam: Normal external nose present Face and sinus: Yes normal facial exam Mouth: Normal oral and palatal mucosa present, oropharynx normal and moist mucous membranes Throat: Yes posterior oropharynx normal, Yes tonsils normal and Yes uvula midline Eyes General: appearance normal, both eyes and all related structures Eyelids: Yes eyelids normal Conjunctivae: conjunctivae normal Sclerae: sclerae normal Pupils: Equal, round and reactive pupils present EOM: EOMs intact bilaterally Neck Neck: Yes normal visual inspection, Yes full ROM and Yes no lymphadenopathy Lymphatic: no lymphadenopathy noted Chest Other: Mild tenderness palpation along the anterior chest wall. Chest palpation & inspection: normal inspection of the chest Resp Effort & Inspection: normal respiratory effort and able to speak in complete sentences Auscultation: clear to auscultation bilaterally, no crackles, no rales, no rhon chi and no wheezes Cardio Rate: regular rate Rhythm: regular rhythm Heart sounds: S1 normal heart sound present and S2 normal heart sound present GI Inspection: Yes normal to inspection Skin General skin exam: no rashes or lesions noted Trauma: no lacerations or abrasions Wounds: no wounds Neuro General: patient oriented x3 and moves all extremities Cranial nerves: Yes Equal, round and reactive pupils present Extrem General: Yes normal to inspection Right upper extremity: normal to inspection Left upper extremity: normal to inspection Right lower extremity: normal to inspection Left lower extremity: normal to inspection Course Course Course Narrative: This is a rapid medical exam performed by Sadie Saucedo NP: Additional HPI, ROS, PE not included below will be deferred to primary provider. Patient is a 33-year-old male with history of asthma, depression presenting with sore throat, chest heaviness, intermittent cough for the past week. Denies fevers. Plan: viral serology, strep, cxr, ekg Medications Administered Discontinued Medications Generic Name Dose Route Start Last Admin Trade Name Freq PRN Reason Stop Dose Admin Acetaminophen 975 mg 03/07/24 12:47 03/07/24 13:20 Acetaminophen 325 Mg Tablet PO 03/07/24 12:48 975 mg ONCE ONE Administration Medical Decision Making Medical Decision Making [facility] Narrative: This is a 33-year-old male, with a history of asthma, who presents emergency department with complaints of cough, sore throat, and intermittent chest pain. On arrival, vital signs within normal limits. He is speaking full sentences under no acute distress. Chest pain has been constant over the last week, worsens with cough as well as movement. Differential diagnoses include viral URI, costochondritis, strep, mono, ACS-unlikely. Lungs are clear to auscultation bilaterally, oropharynx is nonerythematous, no tonsillar hypertroph y or exudates noted. Plan: EKG, chest x-ray, viral swabs, strep swab Differential Diagnosis Differential Diagnoses: The differential diagnosis associated with the presentation includes See above Lab Data [facility] Lab Attestation statement: I reviewed the patient's lab results. Negative flu, RSV, COVID and strep Labs: Lab Results 03/07/24 Range/Units 11:15 Influenza Type A (PCR) NEGATIVE (Negative) Influenza Type B (PCR) NEGATIVE (Negative) RSV RNA Qual (PCR) NEGATIVE (Negative) SARS-CoV-2 RNA (RT-PCR) NEGATIVE (Negative) S. pyogenes GrpA CAREN Negative (Negative) Radiology Impression Discussion of test interpretation with radiology: I have reviewed the radiologist's reading. Discharge Plan Discharge Clinical Impression: Upper respiratory infection, viral Patient Disposition: Home, Self-Care Instructions: Upper Respiratory Infection (ED) Additional Instructions: You tested negative for COVID, Flu, and RSV today. You tested negative for strep throat. Your EKG and Chest x-ray were reassuring. Your symptoms are likely due to a virus. Please drink plenty of fluids get plenty of rest. Alternate between ibuprofen and or Tylenol as needed for pain. If any new or worsening symptoms occur including but not limited to worsening chest pain, shortness of breath, please return for re-evaluation. Follow-up with your primary care physician regarding this visit. Saltwater gargles, hot tea with honey, popsicles can also help with your symptoms. Prescriptions: New phenol 1.4 % aerosol,spray 5 spray mucous membrane Q5H PRN (Reason: sore throat) Qty: 20 0RF ibuprofen 600 mg tablet 600 mg PO Q6H PRN (Reason: pain) Qty: 30 0RF acetaminophen [Tylenol Extra Strength] 500 mg tablet 1,000 mg PO Q8H PRN (Reason: pain) Qty: 30 0RF No Action sertraline 100 mg tablet 100 mg PO DAILY fluticasone propionate 110 mcg/actuation Hfa Aerosol Inhaler 2 puff INHALATION BID dexamethasone 6 mg tablet 6 mg PO DAILY Qty: 7 0RF cyclobenzaprine 10 mg tablet 10 mg PO TID PRN (Reason: muscle spasm) 7 Days Qty: 21 0RF Stand Alone Forms: Work/School Release Print Language: Urdu
[2024-03-07 11:33] LABS: IDNOW Serial# 08D9AD1C; Strep A Nucleic Acid Negative (Negative)
[2024-03-07 11:56] LABS: Influenza A PCR NEGATIVE (Negative); Influenza B PCR NEGATIVE (Negative); Resp Syncy Virus RNA Qual PCR NEGATIVE (Negative); SARS COV2 PCR INHOUSE NEGATIVE (Negative)
[2024-03-07] MEDS: Acetaminophen 325 MG TABLET 975 MG PO (13:20)
[2024-03-07 13:51] VITALS: BP 122/84; PULSE 65; RESP 16; TEMP 36.3; O2SAT 98
== END 2024-03-07 13:52 | disposition home or self-care (01) ==
PROVIDERS: Registered Nurse Emergency; Emergency Provider Emergency Medicine; PCP Family Medicine
DX: J06.9 Acute upper respiratory infection, unspecified (principal); J02.9 Acute pharyngitis, unspecified; R07.89 Other chest pain; Z03.818 Encounter for observation for suspected exposure to other biological agents ruled out; J45.909 Unspecified asthma, uncomplicated
CPT/HCPCS: 0241U; 71046; 87651; 93005; 99283; 99284

== ENCOUNTER 2024-06-22 14:06 | Outpatient (REF) | payer OTHER, SELFPAY ==
--- NOTE | ~2024-06-22 | XR_ITS ---
EXAMINATION: XR CALCANEUS, RIGHT CLINICAL INFORMATION: ACHILLES TENDONITIS COMPARISON: None available. TECHNIQUE: Lateral and axial views of the right calcaneus were obtained. FINDINGS: No acute cortical disruption or gross malalignment. No lytic or blastic lesions. Exostosis at the Achilles tendon insertion. No subcutaneous emphysema. XR/XR calcaneus RT min 2V IMPRESSION: Enthesopathy, Achilles tendon insertion. Electronically signed by: Mac Montero MD 06/22/2024 02:33 PM EST
== END 2024-06-22 14:07 | disposition home or self-care (01) ==
LOC: HO.LAB 14:06
PROVIDERS: PCP Family Medicine; Visit Provider Family Medicine
DX: M76.61 Achilles tendinitis, right leg (principal)
CPT/HCPCS: 73650

== ENCOUNTER → 2024-06-22 14:17 | Outpatient (BNV) | payer OTHER, SELFPAY | PROVIDERS: PCP Family Medicine; Visit Provider Radiology Diagnostic Radiology | DX: M77.51 Other enthesopathy of right foot and ankle (principal) | CPT/HCPCS: 73650 ==

== ENCOUNTER 2025-03-03 15:34 | Outpatient (AMB) | payer OTHER, SELFPAY ==
--- NOTE | 2025-03-03 15:49 | A.OFFPC_ITS ---
Vital Signs 03/03/25 15:57 03/03/25 16:18 Height 6 ft 1 in Weight 143.335 kg BMI 41.7 BP 118/92 H 118/86 Respiration 16 Pulse 64 Pulse Source Pulse Oximeter Temp 98.3 F Temp Source Temporal Artery Scan Pulse Oximetry (%) 96 Oxygen Delivery Method Room Air Intake Visit Reasons: 6 MO F/UP - NICOLE PT Licensed Prosthetist Required: No Accompanied by: Self / Same As Patient Allergies No Known Allergies (No Known Allergies*) Allergy (Verified 03/03/25 15:50) Medication List - Last Reconciled 03/03/25 by ANGIE Martin acetaminophen (Tylenol Extra Strength) 1,000 mg (2 x 500 mg) PO Q8H PRN albuterol sulfate 90 mcg/actuation (Ventolin HFA) 2 puffs inhalation Q4-6H PRN buspirone 5 mg PO BID fluticasone propionate 110 mcg/actuation 2 puffs inhalation BID meloxicam 15 mg PO DAILY sertraline 100 mg PO DAILY Tobacco use date assessed: 03/03/25 Dental Screening Dental Screen Date: 03/03/25 Did you have a dental visit in the last 12 months?: Yes Did you have a dental problem in the last 6 months where you did not have access to dental care?: No Was dental information given to patient?: No HPI HPI Comments History of Present Illness Details 34-year-old male with history of major d epressive disorder, asthma, calcific tendinitis of the left ankle and foot, morbid obesity presenting to the office today for management of chronic conditions and to establish care. He was former patient of Dr. Garcia, last seen August/2024. MDD-PHQ 2 negative. On bupropion 150 mg XL and sertraline 100 mg daily. Buspar prn. In check for now . No SI Mild persistent asthma-no recent exacerbation. On Flovent twice daily prn, rare albuterol use. Morbid obesity-BMI 41.7. Has gained 15.4 lb over the last year. 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 Has cut back on portions. Mostly eating at home. Eating Calcific tendonitis- R foot, ongoing 1 year. No known injury. Intermittent, worsens with prolonged standing. Helpful with meloxicam Concerns: None Health Maintenance: colonoscopy at age 44 ROS: General: No fevers, malaise, unintentional weight loss HEENT: No blurred vision, diplopia. No sore throat, nasal congestion, rhinorrhea, sinus pain, ear pain Cardiovascular: No chest pain, palpitations, or leg edema Respiratory: No shortness of breath, wheezing, cough GI: No abdominal pain, nausea, vomiting, diarrhea, constipation, melena, hematochezia : No dysuria, hematuria, increased urinary frequency, decreased urinary output MSK: No myalgia, back pain. see hpi Neuro: No headaches, weakness, paresthesias Skin: No rashes or lesions EXAM: Constitutional - Awake and Alert, No apparent distress Eyes - PERRL Cardiovascular - S1S2, RRR, No edema Respiratory - Normal lung expansion, Normal respiratory effort, No respiratory distress, CTA bilaterally Extremities - no calf tenderness bilaterally, no swelling Skin - Warm/Dry Neurological - Alert & oriented x3 Psychological - Appropriate affect PFSH Medical History (Updated 03/03/25 @ 16:21 by ANGIE Martin) Calcific tendinitis, left ankle and foot Morbid obesity Depression Asthma Surgical History (Updated 03/03/25 @ 16:15 by ANGIE Martin) S/P hernia repair Family History (Updated 03/03/25 @ 16:15 by ANGIE Martin) Other No pertinent family history Social History Household Members: Family Housing: Apartment Do you presently have visiting nurse or other home services: No e-Cigarette/Vaping Use: Never Used Second Hand Smoke Exposure: No service: No Current occupational status: employed Cognitive needs: No Hearing needs: No Vision needs: No Questionnaire PHQ-9 Over the last 2 weeks, how often have you been bothered by any of the following problems? 1. Little interest or pleasure in doing things: not at all 2. Feeling down, depressed, or hopeless: not at all Depression Screening Interpretation: Negative Depression Screening Done: Yes 42209 - PHQ-9 Billing: Yes Source: Developed by Drs. Chris Delarosa, Geraldine Mcrae, Javan Harrell and colleagues, with an educational keturah from [employer]. Thrive Questionnaire Date Thrive assessed: 03/03/25 I am a: Patient What is your living situation today?: I have a steady place to live Within the past 12 months, did the food you bought not last and you didn't have the money to get more?: Never true Within the past 12 months, did you worry whether your food would run out before you got money to buy more?: Never true Do you have trouble paying for medicines?: No Do you have trouble getting transportation to medical appointments?: No Do you have trouble paying your heating and electricity bill?: No Do you have trouble taking care of your child, family member or friend?: No Do you have trouble with day-to-day activities such as bathing, preparing meals, shopping, managing finances, etc.?: No Are you currently unemployed and looking for a job?: No Are you interested in more education?: No Please select the resources that you would like help with: None THRIVE Score: 0 MARK-7 AMB Questionnaire MARK-7 Date MARK - 7 assessed: 03/03/25 Feeling nervous, anxious, or on edge: 1 = Several days Not being able to stop or control worryin = Not at all Worrying too much about different things: 0 = Not at all Trouble relaxin = Not at all Being so restless that it is hard to sit still: 0 = Not at all Becoming easily annoyed or irritable: 1 = Several days Feeling afraid as if something awful might happen: 0 = Not at all Total MARK-7 score (0-4 normal; 5-9 mild; 10-14 moderate; 15-21 severe): 2 Source: Developed by Drs. Chris Delarosa, Geraldine Mcrae, Javan Harrell and colleagues, with an educational keturah from [employer]. MARK-7 Assessment Billing MARK-7 Assessment Tool: MARK-7 Assessment 51936 Physical exam (Primary Care) Vital Signs: Last Vital Signs Temp 98.3 F 03/03/25 15:57 Pulse 64 03/03/25 15:57 Resp 16 03/03/25 15:57 BP 118/92 H 03/03/25 15:57 Pulse Ox 96 03/03/25 15:57 Oxygen Delivery Method Room Air 03/03/25 15:57 BMI result Body Mass Index 41.7 Tobacco/Smoking Status: Tobacco use Status Tobacco use date assessed 03/03/25 03/03/25 16:00 e-Cigarette/Vaping Use Never Used 03/03/25 16:00 Depression Screening Interpretation: Negative Thrive Assessment: Date of Thrive Assessment Date Thrive assessed 03/03/25 03/03/25 16:00 Coding Level of Care Code New Pt Level 4 (71891) Diagnoses Morbid obesity E66.01 Calcific tendinitis, left ankle and foot M65.272 Depression F32.9 Asthma J45.909 Additional Codes MARK-7 Assessment Billing - MARK-7 Assessment Tool: MARK-7 Assessment 97251 ([id number]) PHQ-9 - 12472 - PHQ-9 Billing: Yes ([id number]) Assessment & Plan Assessment & Plan (1) Morbid obesity: Code(s): E66.01 - Morbid (severe) obesity due to excess calories Category: Medical Plan: Weight loss efforts encouraged. Consult on healthy diet with emphasis on protein, fruits, vegetables and limiting refined sugars and simple carbohydrates. Also recommend avoiding highly processed foods. Recommend formal exercise for at least 150 minutes of moderate intensity activity weekly (2) Calcific tendinitis, left ankle and foot: Code(s): M65.272 - Calcific tendinitis, left ankle and foot Category: Medical Plan: Well managed. Continue meloxicam (3) Depression: Code(s): F32.9 - Major depressive disorder, single episode, unspecified Category: Medical Plan: Stable. Continue sertraline 100 mg daily and use BuSpar as needed (4) Asthma: Code(s): J45.909 - Unspecified asthma, uncomplicated Category: Medical Plan: Controlled. Continue maintenance inhaler and albuterol p.r.n. Plan follow-up in 6 months for annual physical exam. Labs to be completed falling visit today Orders: Orders Lipid Panel Today Z13.220 - Encounter for screening for lipoid disorders, Z51.81 - Encounter for therapeutic drug level monitoring Liver Panel Today Z13.220 - Encounter for screening for lipoid disorders, Z51.81 - Encounter for therapeutic drug level monitoring Basic Metabolic Panel Today Z13.220 - Encounter for screening for lipoid disorders, Z51.81 - Encounter for therapeutic drug level monitoring Hemoglobin A1c Today Z13.220 - Encounter for screening for lipoid disorders, Z51.81 - Encounter for therapeutic drug level monitoring Medications: New fluticasone propionate 110 mcg/actuation 2 puffs inhalation BID 12 grams 5RF albuterol sulfate 90 mcg/actuation (Ventolin HFA) 2 puffs inhalation Q4-6H PRN 8.5 grams 1RF shortness of breath or wheezing buspirone 5 mg PO BID 180 tabs 0RF Discontinued dexamethasone Discontinued Reason: Doctor's Order 6 mg PO DAILY 7 tabs 0RF cyclobenzaprine Discontinued Reason: Doctor's Order 10 mg PO TID 7 days PRN 21 tabs 0RF muscle spasm ibuprofen Discontinued Reason: Doctor's Order 600 mg PO Q6H PRN 30 tabs 0RF pain phenol 1.4% Discontinued Reason: Patient Completed Course 5 sprays mucous membrane Q5H PRN 20 mL 0RF sore throat
[2025-03-03 15:57] VITALS: BP 118/92; PULSE 64; RESP 16; TEMP 36.8; O2SAT 96; BMI 41.7
[2025-03-03 16:18] VITALS: BP 118/86
== END 2025-03-03 16:20 | disposition home or self-care (01) ==
LOC: HO.HMCHD 15:35
PROVIDERS: PCP Family Medicine; Visit Provider Physician Assistant
DX: E66.01 Morbid (severe) obesity due to excess calories (principal); M65.272 Calcific tendinitis, left ankle and foot; F32.9 Major depressive disorder, single episode, unspecified; J45.909 Unspecified asthma, uncomplicated

== ENCOUNTER → 2025-03-03 15:34 | Outpatient (BNVA) | payer OTHER, SELFPAY | PROVIDERS: PCP Family Medicine; Visit Provider Physician Assistant | DX: E66.01 Morbid (severe) obesity due to excess calories (principal); Z68.41 Body mass index [BMI] 40.0-44.9, adult; M65.272 Calcific tendinitis, left ankle and foot; F32.9 Major depressive disorder, single episode, unspecified; J45.30 Mild persistent asthma, uncomplicated; Z79.899 Other long term (current) drug therapy; Z13.39 Encounter for screening examination for other mental health and behavioral disorders | CPT/HCPCS: 96127; 99202 ==